=== PATIENT | male | born 1955 | race Caucasian/White ===

== ENCOUNTER 2017-05-18 09:45 | Emergency (ER) | payer MEDICARE, MEDICAID ==
[2017-05-18] MEDS ORDERED: LORazepam 2 MG/ML MDV IVPUSH ONE (10:11)
[2017-05-18] MEDS ORDERED: levETIRAcetam 500 MG in Sodium Chloride 0.9% 100 ML IV ONE (10:12)
[2017-05-18] MEDS ORDERED: Sodium Chloride 0.9% 250 ML IV SCH (10:30)
[2017-05-18 10:50] VITALS: BP 141/80
[2017-05-18] MEDS ORDERED: Gadobutrol 7.5 mMOL/7.5 ML SDV IV SCH (11:30)
[2017-05-18] MEDS ORDERED: Nicotine 21 MG/24 Hr Patch TRDERM ONE (12:15)
--- NOTE | 2017-05-22 16:17 | ER ---
DATE SEEN: 05/18/2017 CHIEF COMPLAINT: Confusion, "something wrong with my brain", history of falling, increased last week, fell yesterday prior to a week ago when moving to their home, would fall four to five times a day. He has never had seizures. He has mild ataxia. He feels different. He states there is something wrong and starts weeping and has emotional lability, starts shaking, and says his whole body shakes. He has been seen by Neurology in the past, noted to be normal. Review of his past medical history notes he has had a schwannoma written on his problem list. He notes he has had vertigo. He does not know if he has had a schwannoma. PAST MEDICAL AND SURGICAL HISTORY: Mastoiditis, arthritis, prostatism, depression, documented hiatus hernia with small amount of reflux, calcification and atherosclerotic vessels, diverticulosis and a previously documented thickened sigmoid wall, with L5-S1 decreased disk height and left inguinal hernia, small. 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 SOCIAL HISTORY: He has not had a fever. He does use marijuana intermittently. He has not had alcohol for 14 years. PHYSICAL EXAMINATION: VITAL SIGNS: Blood pressure was 141/80, heart rate 65 respirations 24, oxygen saturation 94%, and temperature 37.1 degrees. GENERAL: Alert patient, somewhat anxious patient. At one point, he started shaking and became quite anxious. He says that there is something wrong, I should be able to talk during this process. His eyes did not roll back. He did not have opisthotonic behavior nor did he lose consciousness. He actually became somewhat tearful. He pleaded just to do something. At this point, IV Ativan 1 mg was given. This slowed him down. He felt better and no longer had the shakes. HEENT: Pharynx without abnormality. Mouth is moist. No tongue disruption or bleeding in the mouth. Dentition is fair. NECK: No bruits. No masses. No cervical adenopathy. Neck is supple. No tenderness in neck. LUNGS: Clear to auscultation without rales, rhonchi, or wheezes. HEART: S1 and S2. No murmur. Mild sinus tachycardia. Heart rate after his shakes was up to 120. This is slowly coming back down. ABDOMEN: Soft. No guarding. No abdominal discomfort. EXTREMITIES: Without edema. NEUROLOGICAL: Deep tendon reflexes hypoactive lower extremities, present upper extremities. No dysesthesia in the lower extremities. He has decreased muscle strength in the lower extremities compared to upper extremities. He has a marked ataxic gait. His body is somewhat ataxic. I was afraid he would fall down on the floor because of his truncal ataxia. No dysmetria. Slight tremor of the right hand compared to the left. Cranial nerves II through XII were intact. Hearing is good. His right eye has a decreased reflex. DIAGNOSTIC STUDIES: The patient had a CT scan. No abnormalities were noted on CT scan. IMPRESSION AND PLAN: 1. His status was discussed with Neurology doctor on-call, Dr. Marvin. The patient was advised by the neurologist to transfer to [place] for a lumbar puncture today for a variant of Guillain-Clarington. 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 2. The patient did not have a seizure. 3. Problem list states he has a schwannoma, but it is difficult to know if his symptoms were previously diagnosed, as nothing was noted on the MRI. 4. Hiatus hernia documented. 5. Atherosclerotic changes in abdominal vessels vasculature. 6. Prostatism. 7. Arthritis. 8. Bupropion. 9. He is not suicidal. 10.Previous documented thickness of the sigmoid colon, but does not suggest colitis presently. 11.Small left inguinal hernia. The patient was seen at 0957 in the morning. /[id number] VIDHI/JONATHAN BECERRA
== END 2017-05-18 15:41 | disposition home or self-care (01) ==
LOC: FB.ED 09:45
DX: R27.0 Ataxia, unspecified (principal); K44.9 Diaphragmatic hernia without obstruction or gangrene; M19.90 Unspecified osteoarthritis, unspecified site; N40.0 Benign prostatic hyperplasia without lower urinary tract symptoms; K40.90 Unilateral inguinal hernia, without obstruction or gangrene, not specified as recurrent
CPT/HCPCS: 36415; 70553; 80053; 80305; 81003; 82550; 84484; 85025; 93005; 96365; 96375; 99284; A9270; A9585; J1953; J2060; J7030; J7050; 99283